=== PATIENT | female | born 1960 | race Caucasian/White ===

== ENCOUNTER 2018-02-19 13:58 | Emergency (ER) | payer MEDICARE ==
[~2018-02-19] VITALS: Ht 162.6 cm; Wt 104.5 kg
[2018-02-19] MEDS ORDERED: albuterol 2.5 MG/3 ML nebule NEB ONE (14:25)
[2018-02-19] MEDS ORDERED: PRED20TA PO (14:49)
[2018-02-19] MEDS ORDERED: ALBU8HFA PO (14:49)
[2018-02-19] MEDS ORDERED: predniSONE 20 mg tablet PO ONE (14:50)
[2018-02-19 15:14] VITALS: BP 142/86
== END 2018-02-19 15:16 | disposition home or self-care (01) ==
LOC: ER 13:59
DX: J45.901 Unspecified asthma with (acute) exacerbation (principal); Z79.899 Other long term (current) drug therapy
CPT/HCPCS: 94640; 94760; 99283; J7512

== ENCOUNTER 2019-08-22 15:20 | Emergency (ER) | payer MEDICARE, MEDICAID ==
[~2019-08-22] VITALS: Ht 162.6 cm; Wt 103.0 kg
[2019-08-22 15:36] VITALS: BP 157/110
[2019-08-22] MEDS ORDERED: ipratropium/albuterol 3ml nebule NEB ONE (16:15)
[2019-08-22] MEDS ORDERED: predniSONE 20 mg tablet PO ONE (16:15)
[2019-08-22] MEDS ORDERED: CEPH250T PO (16:36)
[2019-08-22] MEDS ORDERED: PRED20TA PO (16:36)
[2019-08-22] MEDS ORDERED: ALBU6.7H9 INH (16:36)
== END 2019-08-22 17:23 | disposition home or self-care (01) ==
LOC: ER 15:21
DX: J20.9 Acute bronchitis, unspecified (principal); J45.909 Unspecified asthma, uncomplicated; G47.30 Sleep apnea, unspecified; Z88.0 Allergy status to penicillin; Z79.899 Other long term (current) drug therapy
CPT/HCPCS: 71046; 94640; 99283; J7512

== ENCOUNTER 2019-09-02 14:14 | Emergency (ER) | payer MEDICARE, MEDICAID ==
[~2019-09-02] VITALS: Ht 162.6 cm; Wt 103.0 kg
[~2019-09-02 14:14] MED LIST: ALBU6.7H9 INH; CEPH250T PO
[2019-09-02 14:30] VITALS: BP 164/89
== END 2019-09-02 15:25 | disposition home or self-care (01) ==
LOC: ER 14:15
DX: R05 Cough (principal); J04.0 Acute laryngitis; J45.909 Unspecified asthma, uncomplicated; Z88.0 Allergy status to penicillin; Z79.899 Other long term (current) drug therapy
CPT/HCPCS: 99281

== ENCOUNTER 2021-12-09 15:52 | Emergency (ER) | payer MEDICARE, MEDICAID ==
[~2021-12-09] VITALS: Ht 162.6 cm; Wt 97.0 kg
[~2021-12-09 15:52] MED LIST changes: -CEPH250T PO
[2021-12-09 15:57] VITALS: BP 167/92
[2021-12-09] MEDS ORDERED: NAPR-56 PO (16:19)
[2021-12-09] MEDS ORDERED: CEPH250T PO (16:19)
[2021-12-09] MEDS ORDERED: TRAM50TA2 PO (16:19)
[2021-12-09] MEDS ORDERED: CLIN150C2 PO (16:27)
== END 2021-12-09 16:29 | disposition home or self-care (01) ==
LOC: ER 15:52
DX: K08.89 Other specified disorders of teeth and supporting structures (principal); R22.0 Localized swelling, mass and lump, head; J45.909 Unspecified asthma, uncomplicated; Z88.0 Allergy status to penicillin; Z79.899 Other long term (current) drug therapy
CPT/HCPCS: 99283

== ENCOUNTER 2022-12-01 13:44 | Emergency (ER) | payer MEDICARE, MEDICAID ==
[~2022-12-01] VITALS: Ht 162.6 cm; Wt 100.0 kg
[~2022-12-01 13:44] MED LIST changes: +ALBU6.7H14 INH; -ALBU6.7H9 INH
[2022-12-01 14:01] VITALS: BP 184/108
[2022-12-01] MEDS ORDERED: azithromycin 250mg tablet PO ONE (15:05)
[2022-12-01] MEDS ORDERED: albuterol 2.5 MG/3 ML nebule NEB ONE (15:05)
[2022-12-01] MEDS ORDERED: GUAI400T92 PO (15:09)
[2022-12-01] MEDS ORDERED: BENZ-38 PO (15:09)
[2022-12-01] MEDS ORDERED: AZIT250T2 PO (15:09)
== END 2022-12-01 16:34 | disposition home or self-care (01) ==
LOC: ER 13:44
DX: J20.9 Acute bronchitis, unspecified (principal); I10 Essential (primary) hypertension; J45.909 Unspecified asthma, uncomplicated; Z88.0 Allergy status to penicillin; Z79.899 Other long term (current) drug therapy
CPT/HCPCS: 71045; 94640; 94760; 99283

== ENCOUNTER 2025-02-21 18:17 | Emergency (ER) | payer MEDICARE, MEDICAID ==
[~2025-02-21] VITALS: Ht 162.6 cm; Wt 100.0 kg
[~2025-02-21 18:17] MED LIST changes: +GUAI400T92 PO
[2025-02-21 18:29] VITALS: TEMP 98
--- NOTE | 2025-02-21 19:13 | Physician Documentation ---
History of Present Illness ~ Chief Complaint: Ankle pain Stated Complaint: ANKLE PAIN Time Seen by MD: 19:05 Primary Medical Doctor: NONE HPI Patient is seen today with complaints of pain in his left ankle that has been slowly getting worse over the last few weeks. Patient states she has more pain when it is cold and states that initiating activity is painful. Patient denies any numbness or tingling or burning radiating pain. She states she does have occasional sharp stabbing pains in the lateral posterior aspect of her left ankle. She has no other concern or complaint at this time. She is ambulatory. Tetanus witin 5 years: Yes Medication Reconciliation Allergies: Coded Allergies: Penicillins (Unverified Allergy, Intermediate, HIVES, FEVER, 12/01/22) Scheduled Albuterol Sulfate (Proventil Hfa), 2 PUFFS INH Q6H Guaifenesin (Guaifenesin), 1 TAB PO Q8H Past Medical History Past Medical History: Hypertension, Asthma, Sleep Apnea Past Surgical History: noncontributory Alcohol Use: None Drug Use: none Lives In: Home Occupation: disabled Review of Systems Constitutional: Denies: chills, fever, weakness Eyes: Denies: pain, blurred vision ENT: Denies: ear pain, nose pain, throat pain, mouth pain Respiratory: Denies: cough, shortness of breath Cardiovascular: Denies: chest pain, palpitations Gastrointestinal: Denies: abdominal pain, nausea, vomiting Genitourinary: Denies: burning, dysuria Female Genitalia: Denies: vaginal discharge, pelvic pain Neurological: Denies: headache, dizziness Musculoskeletal: Denies: pain, swelling Integumentary: Denies: rash, lesions Allergic/Immunologic: Denies: hives, itching Hematologic/Lymphatic: Denies: no symptoms reported Psychiatric: Denies: depression, anxiety Physical Exam Vital Signs: Temperature: 98.0, Heart Rate: 68, Respiratory Rate: 16, BP: 1 69/72, Pulse Oximetry: 98, Weight: 100.000 Oxygen Flow Rate: 0 Physical Exam General: Awake and Alert, no acute distress. HEENT: Conjunctiva pink, Sclera clear, Mucus Membranes moist. Neck: Supple without masses and tenderness. Resp: Unlabored. Lungs clear to auscultation bilaterally. Heart: Regular Rate and rhythm, normal S1 and S2 without murmur, rub or gallop. Musculoskeletal: Patient on exam has no significant tenderness to palpation of the medial or lateral malleoli distally. Patient does have tenderness to palpation just posteriorly to the left lateral malleoli. Patient does have mild decreased range of motion. Patient is neurovascularly intact distally. Motor function and strength intact distally. Extremities: No cyanosis,clubbing or edema. Skin: Warm and Dry. Progress Results/Orders Results/Orders Orders - SADIA MARKHAM PAC Ankle, Complete(3vw Min) (02/21/25 19:17) Foot,Limited (Ap/Lat) (02/21/25 19:28) Completed Orders - SADIA MARKHAM PAC Ankle, Complete(3vw Min) (02/21/25 19:17) Ketorolac Trometh 30mg/Ml Vial (Toradol (02/21/25 19:09) Foot,Limited (Ap/Lat) (02/21/25 19:28) Medications Received in ER Medications (Trade) Dose Ordered Sig/Leif Route PRN Reason Start Time Stop Time Status Last Admin Dose Admin (Toradol inj. 30mg/ml) 30 mg ONCE STAT IM 02/21/25 19:09 02/21/25 19:11 DC 02/21/25 19:22 30 MG Vital Signs 02/21/25 18:29 Temp 98.0 Pulse 68 Resp 16 B/P (MAP) 169/72 Pulse Ox 98 O2 Flow Rate 0 EKG/XRAY/CT/US/VASC/MRI Bone/Soft Tissue X-Ray (Ext.) : Additional Comment X-ray of the left ankle and foot interpreted by myself today shows no sign of acute fracture, bones in anatomic alignment, patient does have bony irregularity of the lateral malleoli/distal fibula. DIAGNOSTIC RADIOLOGY Patient: CITLALI LOPEZ Medical Record: [id number] [facility] : 1960, Age: 64 Sex: Female Location: ER Patient Status: REG ER Service Date/Time: 02/21/251916 Ordering Physician: SADIA MARKHAM PAC Exam: ANKLE, COMPLETE(3VW MIN) CLINICAL INDICATION: left ankle pain TECHNIQUE: DI ANKLE, COMPLETE(3VW MIN) Comparison: None FINDINGS/IMPRESSION: : There is no evidence of acute fracture or dislocation. Dorsal calcaneal enthesophyte. Well corticated osseous densities projects inferior to the medial malleolus likely sequelae of remote trauma. Overlying soft tissues are intact. Electronically Signed by:KARAN DELEON MD Date & Time: 02/21/252005 Dictated by: KARAN DELEON MD Dictation date and time: 02/21/251914 Primary Care Provider: NO PRIMARY CARE PROVIDER cc: SADIA MARKHAM PAC ~ Medical Decision Making Findings Patient is seen today with complaints of pain in his left ankle that has been slowly getting worse over the last few weeks. Patient states she has more pain when it is cold and states that initiating activity is painful. Patient denies any numbness or tingling or burning radiating pain. She states she does have occasional sharp stabbing pains in the lateral posterior aspect of her left ankle. She has no other concern or complaint at this time. She is ambulatory. Patient was given Toradol 30 mg IM in the ED today. X-rays of left foot do not show any sign of acute fracture. Patient will follow up outpatient with primary care for referral to family program specialist for further eval and treatment. Return to ED with any worsening, concerning or changing symptoms. Patient will continue Tylenol ibuprofen as needed for symptomatic relief. Departure Disposition: 01 HOME / SELF CARE / HOMELESS Impression: Primary Impression: Left ankle pain Qualified Codes: M25.572 - Pain in left ankle and joints of left foot; G89.29 - Other chronic pain Condition: Stable Discharge Instructions: Ankle Pain Additional Instructions: Patient was given Toradol 30 mg IM in the ED today. X-rays of left foot do not show any sign of acute fracture. Patient will follow up outpatient with primary care for referral to family program specialist for further eval and treatment. Return to ED with any worsening, concerning or changing symptoms. Patient will continue Tylenol ibuprofen as needed for symptomatic relief. Referrals: NO PRIMARY CARE PROVIDER (PCP) Signature Scribe Signature: No scribe Attestation: No scribe SADIA MARKHAM PAC Feb 21, 2025 19:12
[2025-02-21] MEDS: ketorolac trometh 30MG/ML vial 30 MG/ML VIAL IM STA (19:22)
--- NOTE | 2025-02-21 20:08 | RADIOLOGY REPORT ---
CLINICAL INDICATION: left ankle pain TECHNIQUE: DI ANKLE, COMPLETE(3VW MIN) Comparison: None FINDINGS/IMPRESSION: : There is no evidence of acute fracture or dislocation. Dorsal calcaneal enthesophyte. Well corticated osseous densities projects inferior to the medial malleolus likely sequelae of remote trauma. Overlying soft tissues are intact.
--- NOTE | 2025-02-21 20:10 | RADIOLOGY REPORT ---
CLINICAL INDICATION: pain of left 4th and 5th metatarsals TECHNIQUE: DI FOOT,LIMITED (AP/LAT) Comparison: None FINDINGS/IMPRESSION: : There is no evidence of acute fracture or dislocation. Dorsal calcaneal enthesophyte. Mild soft tissue swelling of the dorsum of the forefoot.
[2025-02-21 20:50] VITALS: BP 162/70; PULSE 66; RESP 18; O2SAT 99
== END 2025-02-21 20:51 | disposition home or self-care (01) ==
LOC: ER 18:17
DX: G89.29 Other chronic pain (principal); M25.572 Pain in left ankle and joints of left foot; I10 Essential (primary) hypertension; G47.30 Sleep apnea, unspecified; J45.909 Unspecified asthma, uncomplicated; Z88.0 Allergy status to penicillin; Z79.899 Other long term (current) drug therapy
CPT/HCPCS: 73610; 73620; 96372; 99284; J1885